=== PATIENT | female | born 1980 | race Caucasian/White ===

== ENCOUNTER 2019-09-02 15:26 | Emergency (ER) | payer OTHER ==
[~2019-09-02] VITALS: Ht 160 cm; Wt 89.8 kg
[2019-09-02] MEDS ORDERED: TRAZODONE HCL50 MG PO (16:12)
[2019-09-02] MEDS ORDERED: BUPROPION HCL100 MG PO (16:13)
[2019-09-02] MEDS ORDERED: NAPROSYN500 MG PO (17:02)
--- OUTSIDE RECORDS SUMMARY | 2019-09-02 18:02 | XMS ---
PreManage Notification: SHANTA ELENA Security Strategies Analyst Events No recent Security Events currently on file CRITERIA MET - [facility] CARE PROVIDERS There are no care providers on record at this time. Guillermo has no Care Guidelines for this patient. Anika VISIT COUNT (12 MO.) 1 CLEMENTE Hook TOTAL 1 NOTE: Visits indicate total known visits. ED/UCC VISIT TRACKING (12 MO.) 09/02/2019 15:27 [facility] Mota [place] TYPE: Emergency COMPLAINT: - BACK AND WRIST PAIN, INJ 12/05/2018 11:59 [facility] TYPE: Urgent Care DIAGNOSES: - Unspecified internal derangement of right knee - Knee Pain - Pain in right knee [facility] TYPE: Urgent Care DIAGNOSES: - Pharyngitis - Acute pharyngitis, unspecified - Viral infection, unspecified - Fever INPATIENT VISIT TRACKING (12 MO.) No inpatient visits to display in this time frame [email or web address]
== END 2019-09-02 18:00 | disposition home or self-care (01) ==
LOC: ED 15:26
DX: S52.502A Unspecified fracture of the lower end of left radius, initial encounter for closed fracture (principal); M54.5 Low back pain; Z88.5 Allergy status to narcotic agent; Z79.899 Other long term (current) drug therapy; W18.30XA Fall on same level, unspecified, initial encounter
CPT/HCPCS: 73110; 99283-25

== ENCOUNTER 2020-08-10 15:12 | Emergency (ER) | payer OTHER ==
[~2020-08-10] VITALS: Ht 160 cm; Wt 92.5 kg
[~2020-08-10 15:12] MED LIST: BUPROPION HCL100 MG PO; NAPROSYN500 MG PO; TRAZODONE HCL50 MG PO
[2020-08-10] MEDS ORDERED: ELINEST1 EACH PO (15:19)
[2020-08-10] MEDS ORDERED: HYDROCODON-ACE1 EA10 PO (18:40)
[2020-08-10] MEDS ORDERED: PRILOSEC OTC20 MG PO (18:40)
--- NOTE | 2020-08-11 07:22 | EKG ---
[facility] [address] [place], [place] [address] Signed Normal sinus rhythm Normal ECG No previous ECGs available Confirmed by MADONNA MEDINA MD ([id number] on 08/11/2020 7:22:11 AM Electronically Signed By: MADONNA MEDINA MD 08/11/20721 PATIENT NAME: SHANTA JEYSON Electrocardiogram DATE OF : 76 PHYSICIAN: MADONNA MEDINA MD REPORT #: [id number] REPORT IS CONFIDENTIAL AND NOT TO BE RELEASED WITHOUT AUTHORIZATION
== END 2020-08-10 19:38 | disposition home or self-care (01) ==
LOC: ED 15:12
DX: R10.12 Left upper quadrant pain (principal); R07.89 Other chest pain; F17.200 Nicotine dependence, unspecified, uncomplicated; Z88.5 Allergy status to narcotic agent; Z79.899 Other long term (current) drug therapy
CPT/HCPCS: 71045; 71260; 80053; 81001; 83690; 83735; 84484; 84703; 85025; 93005; 93010; 96374; 96375; 96376; 99285-25; J2270; J2405; J7030; Q9967

== ENCOUNTER 2020-09-12 16:25 | Emergency (ER) | payer OTHER ==
[~2020-09-12] VITALS: Ht 160 cm; Wt 88.2 kg
[~2020-09-12 16:25] MED LIST changes: +ELINEST1 EACH PO; +HYDROCODON-ACE1 EA10 PO; +PRILOSEC OTC20 MG PO
[2020-09-12] MEDS ORDERED: HYDROCODON-ACE1 EA10 PO (19:45)
[2020-09-12] MEDS ORDERED: PREDNISONE20 MG PO (19:45)
--- NOTE | 2020-09-13 09:01 | EKG ---
[facility] [address] [facility] [address] [place] [address] Signed Normal sinus rhythm Normal ECG When compared with ECG of 10-AUG-2020 18:43, Vent. rate has increased BY 30 BPM Confirmed by CARLA CLIFTON MD ([id number]) on 09/13/2020 9:01:31 AM Electronically Signed By: CARLA CLIFTON MD 09/13/20 0901 PATIENT NAME: SHANTA ELENA Electrocardiogram DATE OF : 76 PHYSICIAN: CARLA CLIFTON MD REPORT #: [id number] REPORT IS CONFIDENTIAL AND NOT TO BE RELEASED WITHOUT AUTHORIZATION
== END 2020-09-12 22:44 | disposition home or self-care (01) ==
LOC: ED 16:25
DX: M54.12 Radiculopathy, cervical region (principal); F17.200 Nicotine dependence, unspecified, uncomplicated; Z88.5 Allergy status to narcotic agent; Z79.899 Other long term (current) drug therapy
CPT/HCPCS: 71045; 73030; 80053; 83735; 84484; 85025; 93005; 93010; 96374; 99284-25; J1100; J1885

== ENCOUNTER 2021-07-31 12:36 | Emergency (ER) | payer OTHER ==
[~2021-07-31] VITALS: Ht 160 cm; Wt 83.0 kg
[~2021-07-31 12:36] MED LIST changes: +PREDNISONE20 MG PO
[2021-07-31] MEDS ORDERED: FAMOTIDINE20 MG PO (13:01)
[2021-07-31] MEDS ORDERED: NICOTINE1 EAC2 TD (13:01)
== END 2021-07-31 14:11 | disposition home or self-care (01) ==
LOC: ED 12:36
DX: S46.911A Strain of unspecified muscle, fascia and tendon at shoulder and upper arm level, right arm, initial encounter (principal); F17.200 Nicotine dependence, unspecified, uncomplicated; Z88.5 Allergy status to narcotic agent; X50.0XXA Overexertion from strenuous movement or load, initial encounter
CPT/HCPCS: 73030; 99283-25; A9270

== ENCOUNTER 2021-08-16 11:47 | Emergency (ER) | payer OTHER ==
[~2021-08-16] VITALS: Ht 160 cm; Wt 82.5 kg
[~2021-08-16 11:47] MED LIST changes: +FAMOTIDINE20 MG PO; +NICOTINE1 EAC2 TD
--- OUTSIDE RECORDS SUMMARY | 2021-08-16 11:50 | XMS ---
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 EOleksandr VISIT COUNT (12 MO.) 1 [facility] Vickie Mortensen [address] [place] [address] TOTAL 4 NOTE: Visits indicate total known visits. ED/C VISIT TRACKING (12 MO.) 08/16/2021 11:48 CLEMENTE Laurent TYPE: Emergency COMPLAINT: - RT KNEE INJURY 07/31/2021 12:37 CLE[facility]E Laurent TYPE: Emergency COMPLAINT: - RT SHOULDER INJ DIAGNOSES: - Nicotine dependence, unspecified, uncomplicated - Pain in right shoulder - Allergy status to narcotic agent - Strain of unspecified muscle, fascia and tendon at shoulder and upper arm level, right arm, initial encounter - Overexertion from strenuous movement or load, initial encounter 06/05/2021 12:[address] Vickie STEPHENS TYPE: Emergency DIAGNOSES: - Chest pain, unspecified - heart racing,dizziness, lt side cp - Chest Pain 09/12/2020 16:26 [facility] [place] TYPE: Emergency COMPLAINT: - L SHOULDER PAIN, TINGLING FINGERS DIAGNOSES: - Other fdc (current) drug therapy - Allergy status to narcotic agent - Radiculopathy, cervical region - Pain in left arm - Nicotine dependence, unspecified, uncomplicated INPATIENT VISIT TRACKING (12 MO.) No inpatient visits to display in this time frame [email or web address]
== END 2021-08-16 13:35 | disposition home or self-care (01) ==
LOC: ED 11:47
DX: S80.01XA Contusion of right knee, initial encounter (principal); F17.200 Nicotine dependence, unspecified, uncomplicated; Z79.891 Long term (current) use of opiate analgesic; W18.30XA Fall on same level, unspecified, initial encounter; Y92.828 Other wilderness area as the place of occurrence of the external cause
CPT/HCPCS: 73560; 99283-25

== ENCOUNTER 2021-10-15 20:07 | Emergency (ER) | payer OTHER ==
[~2021-10-15] VITALS: Ht 160 cm; Wt 82.1 kg
[2021-10-15] MEDS ORDERED: AMOX TR-K CLV1 EAC1 PO (22:39)
== END 2021-10-15 23:05 | disposition home or self-care (01) ==
LOC: ED 20:07
DX: S31.815A Open bite of right buttock, initial encounter (principal); W54.0XXA Bitten by dog, initial encounter; F17.200 Nicotine dependence, unspecified, uncomplicated; Z88.5 Allergy status to narcotic agent
CPT/HCPCS: 99283